=== PATIENT | female | born 2000 | race Hispanic/Latino ===

== ENCOUNTER 2023-03-11 07:31 | Day surgery (SDC) | payer OTHER ==
[2023-03-09 14:08] VITALS: BMI 22.8
[2023-03-11] MEDS ORDERED: Midazolam HCl 2 mg/2 ml Vial ONE (09:16)
[2023-03-11] MEDS ORDERED: fentaNYL 50 mcg/mL 1 mL Vial ONE (09:45)
[2023-03-11] MEDS ORDERED: Lidocaine 1% PF 5 ML VIAL ONE (09:45)
[2023-03-11] MEDS ORDERED: PROPOFOL 20 ML ONE (09:45)
== END 2023-03-11 11:25 | disposition home or self-care (01) ==
LOC: CSHSDC 07:31
PROVIDERS: ATTEND Internal Medicine Gastroenterology
PROC: 0DB68ZX Excision of Stomach, Via Natural or Artificial Opening Endoscopic, Diagnostic (ICD-10-PCS; principal; 2023-03-11)
DX: K29.50 Unspecified chronic gastritis without bleeding (principal); K31.89 Other diseases of stomach and duodenum
CPT/HCPCS: 88305; J2250; J2704; J3010